=== PATIENT | male | born 2005 | race Caucasian/White ===

== ENCOUNTER 2025-09-29 17:08 | Emergency (ER) | payer OTHER, SELFPAY ==
[2025-09-29 17:25] VITALS: BP 126/45; PULSE 88; RESP 18; TEMP 36.9; O2SAT 98
[2025-09-29 17:36] LABS: EDCOVIDSCREEN Negative (Negative); EDINFLUASCREEN Positive (Negative); EDINFLUBSCREEN Negative (Negative); EDSTREPNEGPOS1 Negative (Negative)
--- NOTE | 2025-09-29 17:39 | ED.URI ---
HPI - URI/Sore Throat General Chief Complaint: Headache Stated Complaint: hit head Saturday/cold symptoms Time Seen by Provider: 09/29/25 17:29 Source: patient, family (Mother) and RN notes reviewed Mode of arrival: ambulatory Limitations: no limitations History of Present Illness HPI Narrative: 20-year-old male patient presents today complaining of a one-week history of cough, nasal congestion, rhinorrhea, sore throat. Denies shortness of breath or fever. He has tried Advil, DayQuil, and Tylenol cough very mild improvement. He is also complaining of a posterior headache that has been waxing and waning for the past 3 days. He was playing with a football inside his home while sitting in a chair, fell backwards and struck the back of his head on a table. Initially he did have a headache, but woke up with a headache the next day. Denies dizziness, lightheadedness, vision changes. Currently rates his pain 6/10. He does have some mild improvement with ibuprofen. Related Data Home Medications ?Medication ?Instructions ?Recorded ?Confirmed ?Last Taken ?Type No Home Medications 09/29/25 09/29/25 Unknown History Allergies Allergy/AdvReac Type Severity Reaction Status Date / Time No Known Allergies Allergy Verified 09/29/25 17:10 [facility] Comments At time of signature, I have reviewed and agree with nursing past medical, surgical, social and family history unless otherwise noted. Please see nursing chart for further information. There is no relevant family history pertinent to the presenting complaint Exam Narrative: GENERAL: Mildly ill-appearing, well-nourished, and in no acute distress. HEAD: Normocephalic, small bump on the posterior scalp that is mildly tender to palpation. EYES: EOMI. PERRL. No redness or drainage. Conjunctivae normal. ENT: Mucous membranes pink and moist. Nares clear. No rhinorrhea. TMs normal bilaterally. Throat normal. Uvula midline. NECK: Normal AROM. Supple. No lymphadenopathy. CHEST: No respiratory distress. Clear to auscultation. HEART: Regular rate and rhythm. No murmur appreciated. EXTREMITIES: Normal range of motion. No edema. SKIN: Warm, dry, no rash. Capillary refill normal. Normal skin turgor. NEURO: No focal deficits. Alert and oriented x3. Gait steady. Finger-nose test normal. 5/5 strength in BLE. 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 No signs of depression or anxiety. Course Course Level of Care: Express Care Visit Vital Signs Vital signs: Vital Signs Temperature 98.4 F 09/29/25 17:25 Pulse Rate 88 09/29/25 17:25 Respiratory Rate 18 09/29/25 17:25 Blood Pressure 126/45 L 09/29/25 17:25 Pulse Oximetry 98 09/29/25 17:25 Oxygen Delivery Room Air 09/29/25 17:25 Temperature 98.4 F 09/29/25 17:25 Pulse Rate 88 09/29/25 17:25 Respiratory Rate 18 09/29/25 17:25 Blood Pressure 126/45 L 09/29/25 17:25 Pulse Oximetry 98 09/29/25 17:25 Oxygen Delivery Room Air 09/29/25 17:25 Reviewed [facility] Narrative Medical decision making narrative: 20-year-old male patient presents today complaining of a one-week history of cough, nasal congestion, rhinorrhea, sore throat. Denies shortness of breath or fever. He has tried Advil, DayQuil, and Tylenol cough very mild improvement. He is also complaining of a posterior headache that has been waxing and waning for the past 3 days. He was playing with a football inside his home while sitting in a chair, fell backwards and struck the back of his head on a table. Initially he did have a headache, but woke up with a headache the next day. Denies dizziness, lightheadedness, vision changes. Currently rates his pain 6/10. He does have some mild improvement with ibuprofen. Mildly ill appearing with small bump in the posterior scalp where he struck it against a table. COVID test negative, rapid strep negative, influenza a positive. Patient is out of the window for Tamiflu. Recommend continuing OTC medication for the headache and influenza symptoms. Headache from the fall is likely exacerbated by the influenza. Patient agrees with plan. Vital signs stable. Anticipatory guidance given. ED precautions given. Differential Diagnosis Differential Diagnosis: Influenza, COVID, strep throat, URI, pharyngitis, pneumonia, concussion, contusion Lab Data [facility] Lab Attestation statement: I personally reviewed the patient's lab results. Labs: Lab Results 09/29/25 Range/Units 17:34 POC Influenza A Ag Positive (Negative) POC Influenza B Ag Negative (Negative) POC SARS CoV-2 Ag Negative (Negative) POC Grp A Strep Screen Negative (Negative) Critical Care Time Critical Care Time Critical Care Time: No Discharge Plan Discharge Clinical Impression: Influenza A Contusion of scalp Qualifiers: Encounter type: initial encounter Qualified Code(s): S00.03XA - Contusion of scalp, initial encounter Patient Disposition: Home Condition: Stable Instructions: Influenza (DC) Additional Instructions: You have tested positive for influenza A. Continue [id number] medication for symptoms and headache. As discussed, if you develop worsening symptoms such as chest pain, shortness of breath, please go to the ER immediately for further evaluation. Patient Language: Syriac Prescriptions: No Action No Home Medications Follow-up/Referrals: PHYSICIAN NOT ON STAFF,NONSTAFF [Primary Care Provider] Time of Disposition: 17:48
[2025-09-29 17:41] LABS: EDCOVIDSCREEN Negative (Negative); EDINFLUASCREEN Positive (Negative); EDINFLUBSCREEN Negative (Negative); EDSTREPNEGPOS1 Negative (Negative)
== END 2025-09-29 17:50 | disposition home or self-care (01) ==
PROVIDERS: Emergency Provider Nurse Practitioner
DX: J10.1 Influenza due to other identified influenza virus with other respiratory manifestations (principal); S00.03XA Contusion of scalp, initial encounter; X58.XXXA Exposure to other specified factors, initial encounter; Z20.822 Contact with and (suspected) exposure to COVID-19
CPT/HCPCS: 87081; 87426; 87804; 87880; 99213; G0463